=== PATIENT | male | born 1960 | race African-American/Black ===

== ENCOUNTER 2018-09-14 12:21 | Inpatient (IN) | payer BC, OTHER ==
--- NOTE | 2018-09-14 17:28 | HP ---
COWS - Scale Resting Pulse: 0= [place] 80 or Below Sweatin=Flushed/Facial Moisture Restless Observation: 1= Difficult to Sit Still Pupil Size: 1= Pupils >than Normal Bone or Joint Aches: 2= Severe Diffuse Aches Runny Nose/ Eye Tearin= Runny Nose/Eyes GI Upset > 30mins: 2= Nausea/Diarrhea Tremor Observation: 2= Slight Tremor Visible Yawning Observation: 1= 1-2x During Session Anxiety or Irritability: 2=Irritable/Anxious Goose Flesh Skin: 3=Piloerection COWS Score: 18 CIWA Score Nausea/Vomitin Muscle Tremors: 3 Anxiety: 3 Agitation: 2 Paroxysmal Sweats: 2 Orientation: 0-Oriented Tacttile Disturbances: 2-Mild Itch/Numbness/Burn Auditory Disturbances: 1-Very Mild Visual Disturbances: 1-Very Mild Sensitivity Headache: 2-Mild CIWA-Ar Total Score: 18 - Admission Criteria [facility] Guidelines: Admission for Medically Managed Detox: Requires at least one of the followin. CIWA greater than 12 2. Seizures within the past 24 hours 3. Delirium tremens within the past 24 hours 4. Hallucinations within the past 24 hours 5. Acute intervention needed for co occurring medical disorder 6. Acute intervention needed for co occurring psychiatric disorder 7. Severe withdrawal that cannot be handled at a lower level of care (continued vomiting, continued diarrhea, abnormal vital signs) requiring intravenous medication and/or fluids 8. Patient presents the following: CIWA greater than 12 Admission Criteria Met: Admission criteria met Admission ROS [facility] - [facility] Chief Complaint: I need detox, I'm sick Allergies/Adverse Reactions: Allergies Allergy/AdvReac Type Severity Reaction Status Date / Time No Known Allergies Allergy Verified 09/14/18 15:05 History of Present Illness: 58 year old man presents for detox from opiates and alcohol. Denies recent treatment, denies blackouts or seizures related to alcohol. - Ebola screening Have you traveled outside of the country in the last 21 days: No (N) Have you had contact with anyone from an Ebola affected area: No Have you been sick,other than usual withdrawal symptoms: No Do you have a fever: No - Review of Systems Constitutional: Chills, Loss of Appetite, Changes in sleep EENT: reports: Recent change in vision, Nose Congestion Respiratory: reports: Cough, Shortness of Breath Cardiac: reports: No Symptoms Reported GI: reports: Poor Fluid Intake, Abdominal cramping : reports: No Symptoms Reported Musculoskeletal: reports: Back Pain, Joint Pain, Muscle Pain, Muscle Weakness Integumentary: reports: Flushing Neuro: reports: Headache, Numbness, Tremors Endocrine: reports: No Symptoms Reported Hematology: reports: No Symptoms Reported Psychiatric: reports: Anxious, Depressed Other Systems: Reviewed and Negative Patient History - Patient Medical History Hx Anemia: No Hx Asthma: Yes Hx Chronic Obstructive Pulmonary Disease (COPD): No Hx Cancer: No Hx Cardiac Disorders: No Hx Congestive Heart Failure: No Hx Hypertension: No Hx Hypercholesterolemia: No Hx Pacemaker: No HX Cerebrovascular Accident: No Hx Seizures: No Hx Dementia: No Hx Diabetes: Yes Hx Gastrointestinal Disorders: No Hx Liver Disease: No Hx Genitourinary Disorders: No Hx Sexually Transmitted Disorders: No Hx Renal Disease (ESRD): No Hx Thyroid Disease: No Hx Human Immunodeficiency Virus (HIV): No Hx Hepatitis C: No Hx Depression: Yes Hx Suicide Attempt: No Hx Bipolar Disorder: No Hx Schizophrenia: No - Patient Surgical History Past Surgical History: No - PPD History Previous Implant?: Yes Documented Results: Positive w/o proof Implanted On Prior [facility] Admission?: No PPD to be Administered?: No - Smoking Cessation Smoking history: Current every day smoker Have you smoked in the past 12 months: Yes Aproximately how many cigarettes per day: 10 Hx Chewing Tobacco Use: No Initiated information on smoking cessation: Yes 'Breaking Loose' booklet given: 09/14/18 - Substance & Tx. History Hx Alcohol Use: Yes Hx Substance Use: No Substance Use Type: Alcohol, Heroin, Tranquilizers Hx Substance Use Treatment: No - Substances abused Alcohol Substance route: Oral Frequency: Daily Amount used: 1 40oz beer/day Age of first use: 58 Date of last use: 09/11/18 Heroin Substance route: Inhalation Frequency: Daily Amount used: 3-4 bags/day Age of first use: 48 Date of last use: 09/14/18 Family Disease History - Family Disease History Family History: Unremarkable Admission Physical Exam BHS - Vital Signs Vital Signs: Vital Signs - 24 hr 09/14/18 15:02 Temperature 97.9 F Pulse Rate 83 Respiratory 18 Rate Blood Pressure 148/95 - Physical General Appearance: Yes: Mild Distress HEENTM: Yes: EOMI, Hearing grossly Normal, Normal ENT Inspection, Normocephalic , Normal Voice, DINA, Pharynx Normal Respiratory: Yes: Chest Non-Tender, No Respiratory Distress, No Accessory Muscle Use, Wheezing Neck: Yes: No masses,lesions,Nodules, Supple Breast: Yes: Breast Exam Deferred Cardiology: Yes: Regular Rhythm, Regular Rate Abdominal: Yes: Normal Bowel Sounds, Soft Genitourinary: Yes: Within Normal Limits Back: Yes: Normal Inspection Musculoskeletal: Yes: full range of Motion, Back pain, Muscle Pain Extremities: Yes: Tremors, Coldness 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 NML intact, Fully Oriented, Alert, Normal Mood/ Affect, Normal Response Integumentary: Yes: Cold, Clammy Lymphatic: Yes: Within Normal Limits - Diagnostic (1) Alcohol dependence with uncomplicated withdrawal Current Visit: Yes Status: Acute (2) Opiate addiction Current Visit: Yes Status: Acute Qualifiers: Substance use status: uncomplicated Qualified Code(s): F11.20 - Opioid dependence, uncomplicated (3) Nicotine addiction Current Visit: Yes Status: Acute Qualifiers: Nicotine product type: cigarettes Substance use status: uncomplicated Qualified Code(s): F17.210 - Nicotine dependence, cigarettes, uncomplicated (4) Asthma Current Visit: Yes Status: Acute Qualifiers: Asthma severity: moderate Asthma persistence: persistent Cleared for Admission S - Detox or Rehab [facility] Level of Care: Medically Managed Detox Regimen/Protocol: Methadone/Librium Claeared for Rehab Admission: No Breathalyzer - Breathalyzer Breathalyzer: 0 Urine Drug Screen - Test Device Lot number: [id number] Expiration date: 07/02/20 - Control Is test valid?: Yes - Results Drug screen NEGATIVE: No Urine drug screen results: THC-Marijuana, FEN-Fentanyl, MOP-Opiates, OXY- Oxycodone Inpatient Rehab Admission - Rehab Decision to Admit Inpatient rehab admission?: No
[2018-09-14] MEDS ORDERED: MENTHOL/PHENOL 1 EACH UD MM PRN (17:32)
[2018-09-14] MEDS ORDERED: MAG HYDROX/AL HYDROX/SIMETH 30 ML UNIT-DOSE CUP PO PRN (17:32)
[2018-09-14] MEDS ORDERED: IBUPROFEN 400 MG TABLET (FP) PO PRN (17:32)
[2018-09-14] MEDS ORDERED: MAGNESIUM HYDROX 2400MG/30ML ORAL SUSPENSION 30 ML CUP PO PRN (17:32)
[2018-09-14] MEDS ORDERED: ACETAMINOPHEN 325 MG TABLET (FP) PO PRN ×2 (17:32)
[2018-09-14] MEDS ORDERED: NICOTINE POLACRILEX 2 MG GUM BUC PRN (17:32)
[2018-09-14] MEDS ORDERED: MELATONIN 5 MG TABLETS PO PRN (17:32)
[2018-09-14] MEDS ORDERED: NALOXONE HCL 0.4 MG/ML VIAL IM PRN (17:32)
[2018-09-14] MEDS ORDERED: clonazePAM 0.5 MG TABLET PO PRN (17:32)
[2018-09-14] MEDS ORDERED: MAGNESIUM CITRATE 300 ML BOTTLE PO PRN (17:32)
[2018-09-14] MEDS ORDERED: METHADONE HCL 10 MG TABLET (FOR DETOX USE ONLY) PO ONE (17:32)
[2018-09-14] MEDS ORDERED: BISMUTH SUBSALICYLATE 524 MG/30 ML UD PO PRN (17:32)
[2018-09-14] MEDS ORDERED: ALBUTEROL SO4 8 GM HFA INHALER IH PRN (17:36)
[2018-09-14] MEDS: cloNIDine HCL 0.1 MG TABLET PO PRN (18:55)
[2018-09-14] MEDS: chlordiazePOXIDE HCL 10 MG CAPSULE PO PRN (18:55)
[2018-09-14] MEDS: METHOCARBAMOL 500 MG TABLET PO PRN (18:55)
[2018-09-14] MEDS: NICOTINE 7 MG/24 HOURS TOPICAL PATCH TD SCH (18:55)
[2018-09-14] MEDS: chlordiazePOXIDE HCL 25 MG CAPSULE PO SCH (22:42)
[2018-09-14] MEDS: THIAMINE HCL 100 MG TABLET (FP) PO SCH (22:42)
[2018-09-14] MEDS: JANUMET PO SCH (22:43)
[2018-09-15] MEDS: chlordiazePOXIDE HCL 25 MG CAPSULE PO SCH ×3 (05:59→22:24)
[2018-09-15] MEDS: cloNIDine HCL 0.1 MG TABLET PO PRN (05:59)
[2018-09-15] MEDS: JANUMET PO SCH ×2 (07:34→22:29)
[2018-09-15] MEDS ORDERED: METHADONE HCL 5 MG TABLET (FOR DETOX USE ONLY) PO ONE (10:00)
[2018-09-15 10:13] LABS: ALBUMIN 3.1 g/dl (3.4-5.0); BILIRUBIN,TOTAL 0.5 mg/dL (0.2-1); BLOOD UREA NITROGEN 8.9 mg/dL (7-18); CALCIUM 8.5 mg/dL (8.5-10.1); CREATININE 0.8 mg/dL (0.55-1.3); POTASSIUM 3.6 mmol/L (3.5-5.1); TOT PROT 5.9 g/dl (6.4-8.2)
[2018-09-15 10:21] LABS: HEMATOCRIT 38.1 % (35.4-49); HEMOGLOBIN 13.1 GM/dL (11.7-16.9); MCH 29.5 pg (25.7-33.7); MCHC 34.5 g/dl (32.0-35.9); MEAN CELL VOLUME 85.7 fl (80-96); MEAN PLT VOLUME 8.5 fl (7.5-11.1); RBC 4.44 M/mm3 (4.00-5.60); RDW 12.9 % (11.9-15.9); WHITE BLOOD COUNT 7.2 K/mm3 (4.0-10.0)
[2018-09-15] MEDS: NICOTINE 7 MG/24 HOURS TOPICAL PATCH TD SCH (10:25)
[2018-09-15] MEDS: PRENATAL VITAMINS W/ FOLIC ACID TABLET (FP) PO SCH (10:25)
[2018-09-15 10:38] LABS: PLATELET COUNT 261 K/MM3 (134-434)
[2018-09-15] MEDS: chlordiazePOXIDE HCL 10 MG CAPSULE PO PRN (11:14)
[2018-09-15] MEDS ORDERED: cloNIDine HCL 0.1 MG TABLET PO PRN (12:06)
--- NOTE | 2018-09-15 12:10 | PN ---
S CIWA - CIWA Score Nausea/Vomitin-Mild Nausea/No Vomiting Muscle Tremors: 3 Anxiety: 3 Agitation: 3 Paroxysmal Sweats: 1-Minimal Palms Moist Orientation: 1-Uncertain about Date Tacttile Disturbances: 1-Very Mild Itch/Numbness Auditory Disturbances: 0-None Visual Disturbances: 0-None Headache: 0-None Present CIWA-Ar Total Score: 13 BHS COWS - Scale Resting Pulse: 0= [place] 80 or Below Sweatin= Chills/Flushing Restless Observation: 0= Sits Still Pupil Size: 0= Normal to Room Light Bone or Joint Aches: 2= Severe Diffuse Aches Runny Nose/ Eye Tearin= Nasal Congestion GI Upset > 30mins: 2= Nausea/Diarrhea Tremor Observation of Outstretched Hands: 2= Slight Tremor Visible Yawning Observation: 2= >3x During Session Anxiety or Irritability: 2=Irritable/Anxious Goose Flesh Skin: 0=Smooth Skin COWS Score: 12 S Progress Note (SOAP) Subjective: 58 years old male admitted on 09/14/18 for alcohol and opiate withdrawal sx medical history of asthma diabete II hypertension patient received monthly endocet of 150 pill x 30 days last filled 09/12/18 external mediation reviewed that the patient is taking losartan 25 mg po daily for hypertension begin losartan 25 mg po daily and clondine 0.1 mg po q6h prn for hypertension Objective: 09/15/18 12:09 Vital Signs Temperature 97.8 F 09/15/18 09:15 Pulse Rate 62 09/15/18 09:15 Respiratory Rate 18 09/15/18 09:15 Blood Pressure 147/82 09/15/18 09:15 O2 Sat by Pulse Oximetry (%) Laboratory Last Values WBC 7.2 K/mm3 (4.0-10.0) 09/15/18 07:50 RBC 4.44 M/mm3 (4.00-5.60) 09/15/18 07:50 Hgb 13.1 GM/dL (11.7-16.9) 09/15/18 07:50 Hct 38.1 % (35.4-49) 09/15/18 07:50 MCV 85.7 fl (80-96) 09/15/18 07:50 MCH 29.5 pg (25.7-33.7) 09/15/18 07:50 MCHC 34.5 g/dl (32.0-35.9) 09/15/18 07:50 RDW 12.9 % (11.9-15.9) 09/15/18 07:50 Plt Count 261 K/MM3 (134-434) 09/15/18 07:50 MPV 8.5 fl (7.5-11.1) 09/15/18 07:50 Sodium 141 mmol/L (136-145) 09/15/18 07:50 Potassium 3.6 mmol/L (3.5-5.1) 09/15/18 07:50 Chloride 107 mmol/L (98-107) 09/15/18 07:50 Carbon Dioxide 28 mmol/L (21-32) 09/15/18 07:50 Anion Gap 6 MMOL/L (8-16) L 09/15/18 07:50 BUN 8.9 mg/dL (7-18) 09/15/18 07:50 Creatinine 0.8 mg/dL (0.55-1.3) 09/15/18 07:50 Est GFR (CKD-EPI)AfAm 114.93 09/15/18 07:50 Est GFR (CKD-EPI)NonAf 99.16 09/15/18 07:50 Random Glucose 192 mg/dL (74-106) H 09/15/18 07:50 Calcium 8.5 mg/dL (8.5-10.1) 09/15/18 07:50 Total Bilirubin 0.5 mg/dL (0.2-1) 09/15/18 07:50 AST 8 U/L (15-37) L 09/15/18 07:50 ALT 29 U/L (13-61) 09/15/18 07:50 Alkaline Phosphatase 69 U/L (45-117) 09/15/18 07:50 Total Protein 5.9 g/dl (6.4-8.2) L 09/15/18 07:50 Albumin 3.1 g/dl (3.4-5.0) L 09/15/18 07:50 RPR Titer Nonreactive (NONREACTIVE) 09/15/18 07:50 lab noted Assessment: 09/15/18 12:10 alcohol and opiate withdrawal sx Plan: continue alcohol and opiate detox
[2018-09-15] MEDS: THIAMINE HCL 100 MG TABLET (FP) PO SCH (22:24)
[2018-09-15] MEDS: METHOCARBAMOL 500 MG TABLET PO PRN (22:26)
[2018-09-15] MEDS: LOSARTAN POTASSIUM 25 MG TABLET PO SCH (23:28)
[2018-09-16] MEDS ORDERED: chlordiazePOXIDE 5 MG CAPSULE PO SCH (05:00)
[2018-09-16] MEDS: JANUMET PO SCH (08:04)
[2018-09-16 09:16] VITALS: BP 124/73; PULSE 75; TEMP 96.7
[2018-09-16] MEDS ORDERED: RANITIDINE HCL 150 MG TABLET (FP) PO SCH (10:00)
[2018-09-16] MEDS ORDERED: METHADONE HCL 10 MG TABLET (FOR DETOX USE ONLY) PO ONE (10:00)
--- NOTE | 2018-09-16 10:07 | PN ---
S CIWA - CIWA Score Nausea/Vomitin-Mild Nausea/No Vomiting Muscle Tremors: 2 Anxiety: 3 Agitation: 4-Moderately Restless Paroxysmal Sweats: 1-Minimal Palms Moist Orientation: 0-Oriented Tacttile Disturbances: 1-Very Mild Itch/Numbness Auditory Disturbances: 0-None Visual Disturbances: 0-None Headache: 0-None Present CIWA-Ar Total Score: 12 S COWS - Scale Resting Pulse: 0= [place] 80 or Below Sweatin= Chills/Flushing Restless Observation: 0= Sits Still Pupil Size: 0= Normal to Room Light Bone or Joint Aches: 1= Mild Discomfort Runny Nose/ Eye Tearin= Nasal Congestion GI Upset > 30mins: 2= Nausea/Diarrhea Tremor Observation of Outstretched Hands: 2= Slight Tremor Visible Yawning Observation: 2= >3x During Session Anxiety or Irritability: 2=Irritable/Anxious Goose Flesh Skin: 0=Smooth Skin COWS Score: 11 S Progress Note (SOAP) Subjective: report GI distress due to withdrawal that yesterday he did not drank up all the liquid of methadone today he has GI distress recommend support therapeutic measures "not do any for me" discuss medication assisted treatment program Objective: 09/16/18 10:07 Vital Signs Temperature 96.7 F L 09/16/18 09:15 Pulse Rate 75 09/16/18 09:15 Respiratory Rate 20 09/16/18 09:15 Blood Pressure 124/73 09/16/18 09:15 O2 Sat by Pulse Oximetry (%) Laboratory Last Values WBC 7.2 K/mm3 (4.0-10.0) 09/15/18 07:50 RBC 4.44 M/mm3 (4.00-5.60) 09/15/18 07:50 Hgb 13.1 GM/dL (11.7-16.9) 09/15/18 07:50 Hct 38.1 % (35.4-49) 09/15/18 07:50 MCV 85.7 fl (80-96) 09/15/18 07:50 MCH 29.5 pg (25.7-33.7) 09/15/18 07:50 MCHC 34.5 g/dl (32.0-35.9) 09/15/18 07:50 RDW 12.9 % (11.9-15.9) 09/15/18 07:50 Plt Count 261 K/MM3 (134-434) 09/15/18 07:50 MPV 8.5 fl (7.5-11.1) 09/15/18 07:50 Sodium 141 mmol/L (136-145) 09/15/18 07:50 Potassium 3.6 mmol/L (3.5-5.1) 09/15/18 07:50 Chloride 107 mmol/L (98-107) 09/15/18 07:50 Carbon Dioxide 28 mmol/L (21-32) 09/15/18 07:50 Anion Gap 6 MMOL/L (8-16) L 09/15/18 07:50 BUN 8.9 mg/dL (7-18) 09/15/18 07:50 Creatinine 0.8 mg/dL (0.55-1.3) 09/15/18 07:50 Est GFR (CKD-EPI)AfAm 114.93 09/15/18 07:50 Est GFR (CKD-EPI)NonAf 99.16 09/15/18 07:50 POC Glucometer 168 UNITS (80-120) 09/16/18 05:33 Random Glucose 192 mg/dL (74-106) H 09/15/18 07:50 Calcium 8.5 mg/dL (8.5-10.1) 09/15/18 07:50 Total Bilirubin 0.5 mg/dL (0.2-1) 09/15/18 07:50 AST 8 U/L (15-37) L 09/15/18 07:50 ALT 29 U/L (13-61) 09/15/18 07:50 Alkaline Phosphatase 69 U/L (45-117) 09/15/18 07:50 Total Protein 5.9 g/dl (6.4-8.2) L 09/15/18 07:50 Albumin 3.1 g/dl (3.4-5.0) L 09/15/18 07:50 RPR Titer Nonreactive (NONREACTIVE) 09/15/18 07:50 lab noted Assessment: 09/16/18 10:07 alcohol and opiate withdrawal sx Plan: continue alcohol and opiate detox discontinue motrin begin zantac
[2018-09-16] MEDS: LOSARTAN POTASSIUM 25 MG TABLET PO SCH (10:10)
[2018-09-16] MEDS: NICOTINE 7 MG/24 HOURS TOPICAL PATCH TD SCH (10:11)
[2018-09-16] MEDS: PRENATAL VITAMINS W/ FOLIC ACID TABLET (FP) PO SCH (10:11)
--- NOTE | 2018-09-16 13:58 | DS ---
[facility] Detox Discharge Summary Admission Date: 09/14/18 Discharge Date: 09/16/18 - History Present History: Alcohol Dependence, Opioid Dependence Additional Comments: 58 years old male admitted on 09/14/18 for alcohol and opiate withdrawal sx medical history of gerd and asthma treated with zantac bid 150 mg alert no acute distress denies suicidal ideation patient insists to leave the detox unit without apparent reason - Physical Exam Results Vital Signs: Vital Signs Temperature 96.7 F L 09/16/18 09:15 Pulse Rate 75 09/16/18 09:15 Respiratory Rate 20 09/16/18 09:15 Blood Pressure 124/73 09/16/18 09:15 O2 Sat by Pulse Oximetry (%) Pertinent Admission Physical Exam Findings: alcohol and opiate withdrawal sx Laboratory Last Values WBC 7.2 K/mm3 (4.0-10.0) 09/15/18 07:50 RBC 4.44 M/mm3 (4.00-5.60) 09/15/18 07:50 Hgb 13.1 GM/dL (11.7-16.9) 09/15/18 07:50 Hct 38.1 % (35.4-49) 09/15/18 07:50 MCV 85.7 fl (80-96) 09/15/18 07:50 MCH 29.5 pg (25.7-33.7) 09/15/18 07:50 MCHC 34.5 g/dl (32.0-35.9) 09/15/18 07:50 RDW 12.9 % (11.9-15.9) 09/15/18 07:50 Plt Count 261 K/MM3 (134-434) 09/15/18 07:50 MPV 8.5 fl (7.5-11.1) 09/15/18 07:50 Sodium 141 mmol/L (136-145) 09/15/18 07:50 Potassium 3.6 mmol/L (3.5-5.1) 09/15/18 07:50 Chloride 107 mmol/L (98-107) 09/15/18 07:50 Carbon Dioxide 28 mmol/L (21-32) 09/15/18 07:50 Anion Gap 6 MMOL/L (8-16) L 09/15/18 07:50 BUN 8.9 mg/dL (7-18) 09/15/18 07:50 Creatinine 0.8 mg/dL (0.55-1.3) 09/15/18 07:50 Est GFR (CKD-EPI)AfAm 114.93 09/15/18 07:50 Est GFR (CKD-EPI)NonAf 99.16 09/15/18 07:50 POC Glucometer 168 UNITS (80-120) 09/16/18 05:33 Random Glucose 192 mg/dL (74-106) H 09/15/18 07:50 Calcium 8.5 mg/dL (8.5-10.1) 09/15/18 07:50 Total Bilirubin 0.5 mg/dL (0.2-1) 09/15/18 07:50 AST 8 U/L (15-37) L 09/15/18 07:50 ALT 29 U/L (13-61) 09/15/18 07:50 Alkaline Phosphatase 69 U/L (45-117) 09/15/18 07:50 Total Protein 5.9 g/dl (6.4-8.2) L 09/15/18 07:50 Albumin 3.1 g/dl (3.4-5.0) L 09/15/18 07:50 RPR Titer Nonreactive (NONREACTIVE) 09/15/18 07:50 lab noted - Treatment Hospital Course: Detox Protocol Followed, Responded well Patient has Accepted a Rehab Referral to: community support approach - Medication Discharge Medications: Ambulatory Orders Janumet 50-1,000 mg Tablet 1 tablet PO BID 09/14/18 Multivitamin 1 tab DAILY 09/14/18 - Diagnosis (1) Alcohol dependence with uncomplicated withdrawal Status: Acute (2) Asthma Status: Chronic Qualifiers: Asthma severity: moderate Asthma persistence: persistent Asthma complication type: uncomplicated Qualified Code(s): J45.40 - Moderate persistent asthma, uncomplicated (3) Nicotine addiction Status: Acute Qualifiers: Nicotine product type: cigarettes Substance use status: in withdrawal Qualified Code(s): F17.213 - Nicotine dependence, cigarettes, with withdrawal (4) Opiate addiction Status: Acute Qualifiers: Substance use status: uncomplicated Qualified Code(s): F11.20 - Opioid dependence, uncomplicated - AMA Did Patient Leave Against Medical Advice: Yes
[2018-09-17] MEDS ORDERED: chlordiazePOXIDE HCL 10 MG CAPSULE PO PRN
[2018-09-17] MEDS ORDERED: chlordiazePOXIDE HCL 10 MG CAPSULE PO SCH (05:00)
[2018-09-17] MEDS ORDERED: METHADONE HCL 5 MG TABLET (FOR DETOX USE ONLY) PO ONE (06:00)
[2018-09-18] MEDS ORDERED: chlordiazePOXIDE HCL 10 MG CAPSULE PO ONE (05:00)
== END 2018-09-16 11:30 | disposition left against medical advice (07) | DRG 894 ==
LOC: YASAS 12:21 → Y3N 18:05
PROVIDERS: ADMIT Surgery; ATTEND Surgery
PROC: HZ2ZZZZ Detoxification Services for Substance Abuse Treatment (ICD-10-PCS; principal; 2018-09-14)
DX: F10.230 Alcohol dependence with withdrawal, uncomplicated (principal); F11.23 Opioid dependence with withdrawal; F17.213 Nicotine dependence, cigarettes, with withdrawal; F32.9 Major depressive disorder, single episode, unspecified; J45.40 Moderate persistent asthma, uncomplicated; K21.9 Gastro-esophageal reflux disease without esophagitis; I10 Essential (primary) hypertension; E11.9 Type 2 diabetes mellitus without complications; Z79.84 Long term (current) use of oral hypoglycemic drugs
CPT/HCPCS: 36415; 80053; 82962; 85027; 86593; J0735